=== PATIENT | male | born 1985 | race African-American/Black ===

== ENCOUNTER 2019-11-16 07:12 | Day surgery (SDC) | payer OTHER ==
[~2019-11-16] VITALS: Ht 182.9 cm; Wt 137.4 kg
[2019-11-16] VITALS (9 sets, daily range): BP systolic 141–176; BP diastolic 82–100
[~2019-11-16 07:12] MED LIST: ceFAZolin 1gm IVPB IVPB ONE; celeBREX 200mg Cap **SURGERY PATIENTS ONLY ORAL ONE; oxyCONTIN 20mg tab ORAL ONE
--- NOTE | 2019-11-16 07:21 | Pre-Procedure Note/Attestation ---
Pre-Procedure Note/Attestation Complete Prior to Procedure Planned Procedure: left Procedure Narrative: knee diagnostic arthroscopic, possible synovecomy, chondroplasty Indications for Procedure Pre-Operative Diagnosis: left knee internal derangement Attestation I attest that I discussed the nature of the procedure; its benefits; risks and complications; and alternatives (and the risks and benefits of such alternatives ), prior to the procedure, with the patient (or the patient's legal customer sales representative). I attest that, if there was a reasonable possibility of needing a blood transfusion, the patient (or the patient's legal customer sales representative) was given the [facility] standardized written summary, pursuant to the [employer] [place] Blood Safety Act ([place] Health and Safety Code # 1645, as amended). I attest that I re-evaluated the patient just prior to the surgery and that there has been no change in the patient's H&P, except as documented below: Kurtis Camarillo MD Nov 16, 2019 07:21
--- NOTE | 2019-11-16 07:21 | Operative Note - PDOC ---
Operative Note Operative Note Pre-op Diagnosis: left knee internal derangement Procedure: see op report Post-op Diagnosis: same as pre-op plus Operative Findings: consistent w/pre-op dx studies Anesthesia: MAC Specimen: none Complications: none Condition: stable Estimated Blood Loss: none Implant(s) used?: No Kurtis Camarillo MD Nov 16, 2019 07:21
[2019-11-16] MEDS ORDERED: D5 1/2NS 1,000 ML IV SCH (07:30)
[2019-11-16] MEDS ORDERED: HYDROmorphone 1mg/ml Carpuject SUBQ PRN (07:30)
[2019-11-16] MEDS ORDERED: Tylenol #3 tab (300mg/30mg) ORAL PRN (07:30)
[2019-11-16] MEDS ORDERED: HYDROcodone/Acetamin 5/325 tab ORAL PRN (07:30)
[2019-11-16] MEDS ORDERED: HYDROCODON-ACE1 EA13 ORAL (09:05)
[2019-11-16] MEDS ORDERED: TRAMADOL HCL50 MG ORAL (09:05)
[2019-11-16] MEDS ORDERED: LOSARTAN POTASS50 MG ORAL (09:05)
[2019-11-16] MEDS ORDERED: celeBREX 200mg Cap **SURGERY PATIENTS ONLY ORAL ONE (09:36)
[2019-11-16] MEDS ORDERED: oxyCONTIN 20mg tab ORAL ONE (09:36)
[2019-11-16] MEDS ORDERED: Midazolam 2mg/2ml Inj ONE (11:32)
[2019-11-16] MEDS ORDERED: fentaNYL 100 mcg/2 mL IV ONE (11:32)
[2019-11-16] MEDS ORDERED: Propofol 200mg/20ml IV ONE (11:37)
[2019-11-16] MEDS ORDERED: Lidocaine 1% MPF 10mg/ml 5ml ONE (11:37)
[2019-11-16] MEDS ORDERED: Ketorolac 30mg Inj ONE ×2 (11:37→12:08)
[2019-11-16] MEDS ORDERED: Kenalog-40 1ml Vial ONE (12:08)
[2019-11-16] MEDS ORDERED: Bupivacaine 0.25% Inj 30ml INJ ONE (12:09)
[2019-11-16] MEDS ORDERED: Duramorph PF 5mg/10ml amp ONE (12:09)
[2019-11-16] MEDS ORDERED: Lidocaine 1% 10mg/ml/Epi 0.005mg/ml 30ml vial INJ ONE (12:09)
--- NOTE | 2019-11-16 12:13 | Anethesia Preoperative Eval ---
Anesthesia Pre-op PMH/ROS General Date of Evaluation: Nov 16, 2019 Time of Evaluation: 12:10 Anesthesiologist: Kenroy ASA Score: ASA 2 Mallampati Score Class I : Soft palate, uvula, fauces, pillars visible Class II: Soft palate, uvula, fauces visible Class III: Soft palate, base of uvula visible Class IV: Only hard plate visible Mallampati Classification: Class II Surgeon: Marquise Diagnosis: L knee pain Surgical Procedure: L knee scope Anesthesia History: none Family History: no anesthesia problems Allergies: Coded Allergies: No Known Allergies (Unverified , 11/15/19) Medications: see eMAR Patient NPO?: Yes Past Medical History Cardiovascular: Reports: HTN; Denies: CAD, [place], valve dz, arrhythmia, other Pulmonary: Denies: asthma, COPD, CABRERA, other Gastrointestinal/Genitourinary: Reports: GERD; Denies: CRI, ESRD, other Neurologic/Psychiatric: Denies: dementia, CVA, depression/anxiety, TIA, other Endocrine: Denies: DM, hypothyroidism, steroids, other HEENT: Denies: cataract (L), cataract (R), glaucoma, KALSKAG (L), KALSKAG (R), other Hematology/Immune: Denies: anemia, DVT, bleeding disorder, other Musculoskeletal/Integumentary: Denies: OA, RA, DJD, DDD, edema, other Other: obesity PMH Narrative: as above PSxH Narrative: see H&P Anesthesia Pre-op Phys. Exam Physician Exam Last Vital Signs Date Time Temp Pulse Resp B/P (MAP) Pulse Ox O2 Delivery O2 Flow Rate FiO2 11/16/19 08:59 98.1 82 20 141/86 96 Room Air Constitutional: NAD Neurologic: CN 2-12 intact Cardiovascular: RRR, no M/R/G Respiratory: CTA Gastrointestinal: S/NT/ND Airway Exam Mallampati Score: Class II MO: full Neck: flexible ROM: full Teeth: intact Dentures: no upper, no lower Anesthesia Pre-op A/P Labs see chart Risk Assessment & Plan Assessment: ASA 2 Plan: GA with LMA Status Change Before Surgery: No Pre-Antibiotics Drug: Ancef 2gr Given Within 1 Hr of Incision: Yes Time Given: 12:40 Andrés Jasmine MD Nov 16, 2019 12:13
[2019-11-16] MEDS ORDERED: NS Irrig 4000ml IRRIG ONE ×3 (12:27→12:39)
[2019-11-16] MEDS ORDERED: LR 1000ml ONE (12:30)
[2019-11-16] MEDS ORDERED: Sterile Water Irrig 1000ml IRRIG ONE (12:30)
[2019-11-16] MEDS ORDERED: LR 1000ml 1,000 ML IVLG SCH (12:49)
[2019-11-16] MEDS ORDERED: Duramorph PF 5mg/10ml amp IT ONE (12:50)
[2019-11-16] MEDS ORDERED: Metoclopramide 10mg/2ml Inj IVP PRN (13:00)
[2019-11-16] MEDS ORDERED: DiphenhydrAMINE 50mg/ml Inj IVP PRN (13:00)
[2019-11-16] MEDS ORDERED: Meperidine 25mg/0.5ml Inj (FOR RIGORS ONLY) IV PRN (13:00)
[2019-11-16] MEDS ORDERED: Ketorolac 30mg Inj IV PRN (13:00)
--- NOTE | 2019-11-16 13:14 | Immediate Post-Op Evaluation ---
Immediate Post-Op Evalulation Immediate Post-Op Evalulation Procedure: L knee arthroscopy meniscectomy Date of Evaluation: Nov 16, 2019 Time of Evaluation: 13:13 IV Fluids: 700 Blood Products: none Estimated Blood Loss: min Urinary Output: none Blood Pressure Systolic: 156 Blood Pressure Diastolic: 78 Pulse Rate: 86 Respiratory Rate: 22 O2 Sat by Pulse Oximetry: 99 Temperature (Fahrenheit): 97.6 Pain Score (1-10): 1 Nausea: No Vomiting: No Complications none Patient Status: awake, patent, none Hydration Status: adequate Andrés Jasmine MD Nov 16, 2019 13:14
--- NOTE | 2019-11-16 16:48 | 48 Hour Post Anesthesia Eval ---
Post Anesthesia Evaluation Procedure: L knee arthroscopy meniscectomy Date of Evaluation: Nov 16, 2019 Time of Evaluation: 14:15 Blood Pressure Systolic: 158 0: 82 Pulse Rate: 76 Respiratory Rate: 20 Temperature (Fahrenheit): 97.6 O2 Sat by Pulse Oximetry: 97 Airway: patent Nausea: No Vomiting: No Pain Intensity: 1 Hydration Status: adequate Cardiopulmonary Status: stable Mental Status/LOC: patient returned to baseline Follow-up Care/Observations: n/a Post-Anesthesia Complications: none Follow-up care needed: ready to discharge Andrés Jasmine MD Nov 16, 2019 16:48
--- NOTE | 2019-11-16 17:00 | Operative Note - Dictated ---
DATE OF OPERATION: 11/16/2019 PREOPERATIVE DIAGNOSIS: Left knee medial compartment chondral damage. POSTOPERATIVE DIAGNOSES: 1. Left knee grade 4 chondral damage posterior medial femoral condyle measuring 1 cm x 8 mm. 2. Hypertrophic synovial tissue medial and lateral patellofemoral compartment. PROCEDURE: 1. Left knee diagnostic arthroscopy and chondroplasty, medial femoral condyle. 2. Synovectomy medial, lateral, and patellofemoral compartment. SURGEON: Kurtis Camarillo M.D. ANESTHESIA: MAC with local. INDICATION FOR PROCEDURE: The patient is a pleasant gentleman, who had a significant injury to his left knee. He has had difficulty ambulating. He had MRI, which showed some area of chondral damage in medial compartment. He had mechanical symptoms. Therefore, he elected to undergo diagnostic arthroscopy, possible meniscectomy, chondroplasty, synovectomy based on intraoperative findings. Risks, limitations, expectations, and complications of procedure were discussed in detail. All questions were addressed. DESCRIPTION OF PROCEDURE: After informed consent was obtained, the patient was brought to the operating room. The patient was placed under monitored anesthesia control. Time-out was performed. Ancef was administered. The left leg was prepped and draped in a sterile manner. Inferolateral stab incision was then made. Trocar introduced into the knee joint. There was hypertrophic synovial tissue and fat pad of the patellofemoral compartment. There was no chondral damage. Medial compartment was entered and there was hypertrophic synovial tissue in the anterior compartment. Medial working portal was established. Synovectomy of the anterior compartment, medial compartment, extending to intercondylar notch, lateral compartment was performed. This allowed better visualization of the knee joint. The medial compartment was entered. The meniscus probed, noted to be intact. There was an area that measured less than 1 cm x 1 cm chondral damage full thickness. There were some chondral flaps. Gentle chondroplasty was performed down to stable rim of cartilage. Once this was done, the ACL was probed, noted to be intact. Lateral compartment was entered free of any meniscal chondral damage. Camera was then placed in the patellofemoral compartment. Excision of the fat pad was completed. At this point, the instruments were removed. Portal sites were closed using 3-0 Monocryl sutures. Steri-Strips and a sterile dressing were applied. ESTIMATED BLOOD LOSS: None. COMPLICATIONS: None. SPECIMENS: None. IMPLANTS: None. Kurtis Camarillo M.D. DR: CARLINE JOB#: [id number] CC: RAEANN
== END 2019-11-16 14:40 | disposition home or self-care (01) ==
LOC: SUR 07:12
DX: M67.261 Synovial hypertrophy, not elsewhere classified, right lower leg (principal); Z68.41 Body mass index [BMI] 40.0-44.9, adult; I10 Essential (primary) hypertension; K21.9 Gastro-esophageal reflux disease without esophagitis; E66.9 Obesity, unspecified
CPT/HCPCS: 29876; 82962; J0690; J1885; J2250; J2405; J2704; J3010; J3301; J3490; J7120; 94003; 94150

== ENCOUNTER 2020-09-05 07:03 | Day surgery (SDC) | payer OTHER ==
[~2020-09-05] VITALS: Ht 182.9 cm; Wt 103.4 kg
[2020-09-05] VITALS (12 sets, daily range): BP systolic 118–147; BP diastolic 72–92
[~2020-09-05 07:03] MED LIST changes: +HYDROCODON-ACE1 EA13 ORAL; +LOSARTAN POTASS50 MG ORAL; +TRAMADOL HCL50 MG ORAL
[2020-09-05] MEDS ORDERED: OXYCODONE-ACET1 EAC5 ORAL (07:40)
[2020-09-05] MEDS ORDERED: FOLIC ACID1 MG ORAL (07:41)
[2020-09-05] MEDS ORDERED: AMLODIPINE BESY10 MG ORAL (07:43)
[2020-09-05] MEDS ORDERED: METOPROLOL SUCC50 MG ORAL (07:44)
--- NOTE | 2020-09-05 07:44 | Operative Note - PDOC ---
Operative Note Operative Note Pre-op Diagnosis: left knee chondral damage Procedure: see op report Post-op Diagnosis: same as pre-op plus Operative Findings: consistent w/pre-op dx studies Anesthesia: MAC Specimen: none Complications: none Condition: stable Estimated Blood Loss: none Implant(s) used?: No Kurtis Camarillo MD Sep 05, 2020 07:44
--- NOTE | 2020-09-05 07:44 | Pre-Procedure Note/Attestation ---
Pre-Procedure Note/Attestation Complete Prior to Procedure Planned Procedure: left Procedure Narrative: knee arthroscopy, possible microfracture and stem cell injection Indications for Procedure Pre-Operative Diagnosis: left knee chondral damage Attestation I attest that I discussed the nature of the procedure; its benefits; risks and complications; and alternatives (and the risks and benefits of such alternatives), prior to the procedure, with the patient (or the patient's legal manufacturers service representative). I attest that, if there was a reasonable possibility of needing a blood transfusion, the patient (or the patient's legal manufacturers service representative) was given the [facility] standardized written summary, pursuant to the [employer] [place] Blood Safety Act ([place] Health and Safety Code # 1645, as amended). I attest that I re-evaluated the patient just prior to the surgery and that th ere has been no change in the patient's H&P, except as documented below: Kurtis Camarillo MD Sep 05, 2020 07:44
[2020-09-05] MEDS ORDERED: Tylenol #3 tab (300mg/30mg) ORAL PRN (07:45)
[2020-09-05] MEDS ORDERED: HYDROcodone/Acetamin 5/325 tab ORAL PRN (07:45)
[2020-09-05] MEDS ORDERED: D5 1/2NS 1,000 ML IV SCH (07:45)
[2020-09-05] MEDS ORDERED: HYDROmorphone 1mg/ml Carpuject SUBQ PRN (07:45)
--- NOTE | 2020-09-05 08:02 | NUR ---
Celebrex not given,allergic to Ibuprofen
[2020-09-05] MEDS ORDERED: fentaNYL 100 mcg/2 mL IV ONE (08:06)
[2020-09-05] MEDS ORDERED: Midazolam 2mg/2ml Inj ONE ×2 (08:06→11:39)
[2020-09-05] MEDS ORDERED: Lidocaine 1% MPF 10mg/ml 5ml ONE (08:06)
[2020-09-05] MEDS ORDERED: Kenalog-40 1ml Vial ONE (08:36)
[2020-09-05] MEDS ORDERED: Lidocaine 1%/ 10mg/ml/EPI 0.01mg/ml 20ml INJ ONE (08:36)
[2020-09-05] MEDS ORDERED: Duramorph PF 5mg/10ml amp ONE (08:36)
[2020-09-05] MEDS ORDERED: Ketorolac 30mg Inj ONE (08:36)
[2020-09-05] MEDS ORDERED: Sterile Water Irrig 1000ml IRRIG ONE (09:00)
[2020-09-05] MEDS ORDERED: LR 1000ml ONE (09:00)
[2020-09-05] MEDS ORDERED: NS Irrig 3000ml IRRIG ONE ×7 (09:10→10:17)
[2020-09-05] MEDS: Bupivacaine 0.25% Inj 30ml INJ ONE ×2 (09:10→10:01)
[2020-09-05] MEDS ORDERED: Heparin 5000 units/ml inj ONE (09:19)
--- NOTE | 2020-09-05 09:36 | Anethesia Preoperative Eval ---
Anesthesia Pre-op PMH/ROS General Date of Evaluation: Sep 05, 2020 Time of Evaluation: 08:42 Anesthesiologist: Kenroy ASA Score: ASA 2 Mallampati Score Class I : Soft palate, uvula, fauces, pillars visible Class II: Soft palate, uvula, fauces visible Class III: Soft palate, base of uvula visible Class IV: Only hard plate visible Mallampati Classification: Class II Surgeon: Frannie Diagnosis: L knee pain Surgical Procedure: L knee scope Anesthesia History: none Family History: no anesthesia problems Allergies: Coded Allergies: IBUPROFEN (Verified Allergy, Severe, ITCHING, STOMACH UPSET, 09/04/20) Medications: see eMAR Patient NPO?: Yes Past Medical History Cardiovascular: Reports: HTN - stable on meds; Denies: CAD, [place], valve dz, arrhythmia, other Pulmonary: Denies: asthma, COPD, CABRERA, other Gastrointestinal/Genitourinary: Reports: GERD; Denies: CRI, ESRD, other Neurologic/Psychiatric: Reports: depression/anxiety, other - chronic pain; Denies: dementia, CVA, TIA Endocrine: Denies: DM, hypothyroidism, steroids, other HEENT: Denies: cataract (L), cataract (R), glaucoma, MAKAH (L), MAKAH (R), other Hematology/Immune: Denies: anemia, DVT, bleeding disorder, other Musculoskeletal/Integumentary: Reports: OA Other: obesity PMH Narrative: as above PSxH Narrative: Knee scope Anesthesia Pre-op Phys. Exam Physician Exam Last Vital Signs Date Time Temp Pulse Resp B/P (MAP) Pulse Ox O2 Delivery O2 Flow Rate FiO2 09/05/20 07:47 Room Air 09/05/20 07:37 96.8 79 20 147/92 100 Constitutional: NAD Neurologic: CN 2-12 intact Cardiovascular: RRR, no M/R/G Respiratory: CTA Gastrointestinal: other - obesity Airway Exam Mallampati Score: Class II MO: full Neck: flexible ROM: full Teeth: intact Dentures: no upper, no lower Anesthesia Pre-op A/P Labs see chart Studies Pre-op Studies: EKG - NSR Risk Assessment & Plan Assessment: ASA 2 Plan: GA with LMA Status Change Before Surgery: No Pre-Antibiotics Drug: Ancef 2gr Given Within 1 Hr of Incision: Yes Time Given: 09:22 Andrés Jasmine MD Sep 05, 2020 09:36
[2020-09-05] MEDS ORDERED: Hydrogen Peroxide 473ml Bottle TOPIC ONE (09:37)
[2020-09-05] MEDS ORDERED: Ketorolac 30mg Inj IV PRN (09:45)
[2020-09-05] MEDS ORDERED: DiphenhydrAMINE 50mg/ml Inj IVP PRN (09:45)
[2020-09-05] MEDS ORDERED: Meperidine 25mg/1ml Inj (FOR RIGORS ONLY) IV PRN (09:45)
[2020-09-05] MEDS ORDERED: LR 1000ml 1,000 ML IVLG SCH (09:45)
--- NOTE | 2020-09-05 11:07 | Immediate Post-Op Evaluation ---
Immediate Post-Op Evalulation Immediate Post-Op Evalulation Procedure: L knee arthroscopy, meniscectomy stem cells treatment Date of Evaluation: Sep 05, 2020 Time of Evaluation: 11:06 IV Fluids: 1200 Blood Products: none Estimated Blood Loss: 50 Urinary Output: none Blood Pressure Systolic: 136 Blood Pressure Diastolic: 78 Pulse Rate: 86 Respiratory Rate: 20 O2 Sat by Pulse Oximetry: 99 Temperature (Fahrenheit): 98.5 Pain Score (1-10): 1 Nausea: No Vomiting: No Complications none Patient Status: reacts, patent, none Hydration Status: adequate Andrés Jasmine MD Sep 05, 2020 11:07
[2020-09-05] MEDS ORDERED: Midazolam 2mg/2ml Inj IVP SCH (11:45)
[2020-09-05] MEDS ORDERED: HYDROmorphone 1mg/ml Carpuject IVP SCH (11:45)
--- NOTE | 2020-09-05 13:49 | 48 Hour Post Anesthesia Eval ---
Post Anesthesia Evaluation Procedure: L knee arthroscopy, meniscectomy stem cells treatment Date of Evaluation: Sep 05, 2020 Time of Evaluation: 13:47 Blood Pressure Systolic: 120 0: 72 Pulse Rate: 86 Respiratory Rate: 20 Temperature (Fahrenheit): 97.6 O2 Sat by Pulse Oximetry: 98 Airway: patent Nausea: No Vomiting: No Pain Intensity: 3 Hydration Status: adequate Cardiopulmonary Status: stable Mental Status/LOC: patient returned to baseline Follow-up Care/Observations: n/a Post-Anesthesia Complications: none Follow-up care needed: ready to discharge Andrés Jasmine MD Sep 05, 2020 13:49
--- NOTE | 2020-09-05 18:14 | Operative Note - Dictated ---
DATE OF OPERATION: 09/05/2020 PREOPERATIVE DIAGNOSIS: Left knee chondral damage. POSTOPERATIVE DIAGNOSES: 1. Left knee medial femoral full-thickness grade 3 chondral damage extending from the posterior medial aspect of the knee. 2. Grade 4 chondral damage trochlear groove. 3. Intra-articular loose body. PROCEDURES: 1. Left knee diagnostic arthroscopy, synovectomy, medial and lateral patellofemoral compartment. 2. Removal of intra-articular loose body measuring 3 x 4 mm. 3. Chondroplasty/microfracture medial and patellofemoral compartment (trochlear groove). 4. Placement of the BioCartilage with stem cell aspirate into the trochlear groove. SURGEON: Kurtis Camarillo MD. ANESTHESIA: MAC with local. INDICATION FOR PROCEDURE: The patient is a pleasant gentleman who underwent left knee arthroscopy and chondroplasty. Subsequent to that, he had significant recurrent pain, mechanical symptoms, failed conservative treatment, difficulty ambulating. He elected to undergo left knee arthroscopy, synovectomy, chondroplasty, and possible microfracture with implantation of BioCartilage/stem cell. Risks, limitations, expectations, and complications of procedure were discussed in detail and questions addressed. DESCRIPTION OF PROCEDURE: Informed consent was obtained. The patient was brought to the operating room. The patient was placed under general anesthesia. Left leg was prepped and draped in a sterile manner. Time-out was performed. Stab incision was made. Trocar was introduced into the knee joint. There was some hypertrophic synovial tissue in patellofemoral compartment. Medial gutter was freed from loose bodies. Medial compartment was entered. The meniscus was probed, noted to be intact. The synovectomy extending intercondylar notch lateral compartment. ACL was probed and intact. Lateral compartment was entered free of meniscal chondral damage. At this point, attention was directed towards medial compartment, where the area of chondral damage was performed. There was an area about 4 x 4 mm along the posterior medial aspect of the femoral condyle with a 2 x 15 fissure along the posterior medial condyle. Gentle chondroplasty of this area was performed. At this point, attention was turned towards the patellofemoral from compartment. Synovectomy was completed. Once this was completed, significant chondral damage in trochlear groove that measured at least 10 x 20 mm. This area of the trochlear groove was then debrided down to subchondral bone. Given the lesions that were noted in trochlear groove and femoral condyle, microfracture along this area was performed. The location of the chondral damage BioCartilage with stem cell treatment was elected to be performed. Therefore, medial place into the femoral notch, 60 mL of bone marrow aspirate was obtained and then concentrated procedure was done stem cell concentrate. This was just combined with BioCartilage. At this point, the knee was drained up. BioCartilage was placed on the trochlear groove along with to seal the defect. At this point, the camera was removed. Portal sites were closed with 3-0 Monocryl sutures. Medial and lateral geniculate block was placed for postoperative pain control given the extensive nature of the procedure. The patient was then woken, taken to recovery room with stable vital signs. EBL: 100 mL including 60 mL of stem cell aspirate. IMPLANTS: Include 1 mL of BioCartilage. Kurtis Camarillo M.D. DR: Avril JOB#: [id number] CC:
== END 2020-09-05 12:50 | disposition home or self-care (01) ==
LOC: SUR 07:03
DX: M94.8X6 Other specified disorders of cartilage, lower leg (principal); M23.42 Loose body in knee, left knee; I10 Essential (primary) hypertension; K21.9 Gastro-esophageal reflux disease without esophagitis; M19.90 Unspecified osteoarthritis, unspecified site; E66.9 Obesity, unspecified; F32.9 Major depressive disorder, single episode, unspecified; F41.9 Anxiety disorder, unspecified; Z88.6 Allergy status to analgesic agent; Z68.30 Body mass index [BMI] 30.0-30.9, adult
CPT/HCPCS: 29876; 29877; 29879; 29999; 94003; J0690; J1170; J1644; J1885; J2250; J2405; J2704; J3010; J3301; J3490; J7120; U0002; 94150; J2180